=== PATIENT | female | born 1960 | race Caucasian/White ===

== ENCOUNTER 2018-05-24 12:48 | Emergency (ER) | payer SELFPAY ==
[~2018-05-24] VITALS: Ht 162.6 cm; Wt 56.7 kg
[2018-05-24 12:53] VITALS: BP_SYST 153
--- NOTE | 2018-05-24 13:16 | NUR ---
Patient to ER bed 2 to gown for evaluation. Side rails up. Report given to Jorge A IRENE.
--- NOTE | 2018-05-24 13:20 | NUR ---
Pt presents to ED c/o SOB x 5 days. Pt has mild resp distress with exertion. Pt denies significant med hx.
--- NOTE | 2018-05-24 13:30 | NUR ---
ER at bedside examining patient.
[2018-05-24] MEDS ORDERED: LEVOFLOXACIN 500 MG/D5W 100 ML IV ONE (14:00)
[2018-05-24] MEDS ORDERED: ALBUTEROL SULFATE 0.083% 2.5 MG/3 ML VIAL.NEB INH ONE ×2 (14:00→16:00)
--- NOTE | 2018-05-24 14:00 | NUR ---
Pt receiving breathing tx.
[2018-05-24 14:17] LABS: LYMPHOCYTES # (AUTO) 1.4 K/uL (1.0-5.5); MONOCYTES # (AUTO) 1.1 K/uL (0.0-1.0); MONOCYTES % (AUTO) 8.6 % (1.7-9.3)
[2018-05-24 14:26] LABS: BASOPHILS % (AUTO) 0.3 % (0.0-2.0); EOSINOPHILS % (AUTO) 0.3 % (0.0-4.0); HEMATOCRIT 44.8 % (36-48); HEMOGLOBIN 15.4 g/dL (12.0-16.0); LYMPHOCYTES % (AUTO) 11.3 % (20.5-51.5); MEAN CORPUSCULAR HEMOGLOBIN 33 pg (27-31); MEAN CORPUSCULAR HGB CONC 34 % (32-36); MEAN CORPUSCULAR VOLUME 96 fL (79.0-98.0); NEUTROPHILS % (AUTO) 79.5 % (40.0-70.0); PLATELET COUNT (AUTO) 161 K/uL (130-430); RED BLOOD CELL COUNT(AUTO) 4.67 MIL/uL (4.2-6.2); WHITE BLOOD COUNT (AUTO) 12.5 K/uL (4.8-10.8)
[2018-05-24 14:28] LABS: CALCIUM 9.6 mg/dL (8.4-11.0); CREATININE 0.59 mg/dL (0.55-1.30); POTASSIUM 3.1 mmol/L (3.5-5.1)
--- NOTE | 2018-05-24 14:30 | NUR ---
Pt tolerated IV medciation well. Pt resting. Continuing to monitor.
[2018-05-24 14:33] LABS: ALBUMIN 3.8 g/dL (3.4-4.8)
[2018-05-24 14:38] LABS: PROTHROMBIN TIME 9.7 SECS (9.5-12.5)
--- NOTE | 2018-05-24 15:55 | NUR ---
Pt receiving seond breathing tx.
[2018-05-24 15:58] LABS: CLARITY/URINE CLEAR (CLEAR); COLOR,URINE YELLOW (YELLOW); GLUCOSE,URINE NEGATIVE (NEGATIVE); PROTEIN URINE 2+ (NEGATIVE)
[2018-05-24 15:59] LABS: BILIRUBIN,URINE 1+ (NEGATIVE); BLOOD, URINE 3+ (NEGATIVE); KETONES,URINE 2+ (NEGATIVE); LEUKOCYTE ESTERASE ,URINE 1+ (NEGATIVE); NITRITE, URINE NEGATIVE (NEGATIVE)
[2018-05-24 16:00] LABS: BACTERIA,URINE MODERATE /HPF (None Seen); MUCUS,URINE 2+ /LPF (None Seen)
[2018-05-24] MEDS ORDERED: POTASSIUM CHLORIDE 20 MEQ TAB.PRT.SR PO ONE (16:00)
[2018-05-24 16:41] VITALS: BP_SYST 142
--- NOTE | 2018-05-24 16:42 | NUR ---
Patient given written and verbal discharge instructions and verbalizes understanding. ER MD discussed with patient the results and treatment provided. Patient in stable condition. ID arm band removed. IV catheter removed intact and dressing applied, no active bleeding. Rx of Albuterol and Zithromax given. Patient educated on pain management and to follow up with PMD. Pain Scale 2/10 tolerable for pt . Opportunity for questions provided and answered. Medication side effect fact sheet provided.
--- NOTE | 2018-05-25 10:11 | NUR ---
DR GATICA SPOKE WITH DR CORBETT REGARDING CHEST XRAY, PT WAS DISCHARGED WITH ANTIBIOTICS THAT DR GATICA CONFIRMED WOULD BE SUFFICIENT FOR RESULTS.
== END 2018-05-24 16:42 | disposition home or self-care (01) ==
LOC: SED 12:48
DX: J40 Bronchitis, not specified as acute or chronic (principal)
CPT/HCPCS: 36415; 71045; 80053; 81000; 83605; 83880; 84484; 85025; 85610; 87040; 87086; 93005; 94640; 96365; 99285; J1956; J7613